=== PATIENT | female | born 2000 | race Two or more races ===

== ENCOUNTER 2023-11-17 16:15 | Emergency (ER) | payer MEDICAID, OTHER ==
[~2023-11-17] VITALS: Ht 157.5 cm; Wt 101.7 kg
[2023-11-17 18:51] VITALS: BP 128/86; PULSE 97; RESP 17; TEMP 97.9; O2SAT 98
[2023-11-17] MEDS ORDERED: AMOX500C2 PO (19:11)
== END 2023-11-17 19:16 | disposition home or self-care (01) ==
LOC: ER 16:15
DX: J02.0 Streptococcal pharyngitis (principal); R05.9 Cough, unspecified; R42 Dizziness and giddiness

== ENCOUNTER 2024-12-14 10:38 | Emergency (ER) | payer OTHER, MEDICAID ==
[~2024-12-14] VITALS: Ht 157.5 cm; Wt 99.1 kg
[~2024-12-14 10:38] MED LIST: AMOX500C2 PO
[2024-12-14 11:29] VITALS: BP 133/89; PULSE 88; RESP 16; TEMP 98.3; O2SAT 99
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
[2024-12-14] MEDS: ACETAMINOPHEN 325 MG TAB PO ONE (11:53)
--- NOTE | 2024-12-14 12:26 | DVH ---
EXAM: CT HEAD WITHOUT CONTRAST HISTORY: HEAD INJURY COMPARISON: None TECHNIQUE: Axial images of the head were obtained and reformatted in coronal and sagittal planes. All CT scans at this medical facility are performed using dose modulation techniques as appropriate t o a performed exam including the following: Automated exposure control was utilized; adjustment of th e MA and/or KV according to patient size; and use of iterative reconstruction technique. CT Dose: CTDI volume is 53 mGy. Dose-length product is 971 mGy*cm FINDINGS: There is no evidence of acute intracranial hemorrhage, mass, mass effect midline shift. There is no h ydrocephalus or extra-axial fluid collection. Cervantes-white matter differentiation is maintained. The visualized paranasal sinuses and mastoid air cells are clear. The calvarium is intact. IMPRESSION: 1. No acute intracranial process. HS:Y
[2024-12-14] MEDS ORDERED: IBUP-1456 PO (12:42)
== END 2024-12-14 12:52 | disposition home or self-care (01) ==
LOC: ER 10:38
DX: S00.83XA Contusion of other part of head, initial encounter (principal); W22.8XXA Striking against or struck by other objects, initial encounter; Y93.89 Activity, other specified; Y92.89 Other specified places as the place of occurrence of the external cause; Y99.8 Other external cause status
CPT/HCPCS: 70450

== ENCOUNTER 2025-07-31 09:58 | Emergency (ER) | payer MEDICAID ==
[~2025-07-31] VITALS: Ht 157.5 cm; Wt 96.3 kg
[~2025-07-31 09:58] MED LIST changes: +IBUP-1456 PO
[2025-07-31] MEDS: ALBUTEROL SULF 2.5 MG/0.5ML(0.5%) NEB SOLN NEB ONE ×2 (10:38→10:45)
[2025-07-31] MEDS: IPRATROPIUM BROM 0.5 MG/2.5ML INH SOL NEB ONE ×2 (10:38→10:45)
--- NOTE | 2025-07-31 10:42 | ED.PDOC ---
SOB-HPI HPI Comments A 25 YEAR OLD FEMALE PRESENTS TO THE ED WITH COMPLAINT OF SOB. PATIENT REPORTS THAT SHE HAS BEEN EXPERIENCING SOB WITH ASSOCIATED COUGH FOR THE PAST 2 DAYS. PATIENT RELAYS THAT SHE HAS HISTORY OF ASTHMA, BUT HER INHALER HAS NOT PROVIDED RELIEF. PATIENT DENIES FEVER, CHILLS, CHEST PAIN, ABDOMINAL PAIN, NAUSEA, VOMITING, HEADACHE, OR OTHER COMPLAINTS. NO OTHER SYMPTOMS OR MODIFYING FACTORS AT THIS TIME. PATIENT IS ALERT, ORIENTED X 4, AND HAS STEADY GAIT. Chief Complaint: Asthma Time Seen by MD: 10:40 Reviewed notes: Nurses Notes, Medications, Allergies Information Source: Patient Mode of Arrival: Ambulatory Severity: Moderate Timing: Days Duration: Since onset Context: At Rest PE Risk Factors: None History of: Asthma Prehospital treatment: None Modifying Factors: Nothing Associated Signs and Symptoms: Cough If cough with SOB: Non-Productive Past Medical History PAST MEDICAL HISTORY: Asthma, Cancer (LEUKEMIA) Surgical History: Denies all surgeries FOOD CONSULTANT History: No Pertinent FOOD CONSULTANT History Family History Family History: Reviewed,noncontributory to illness Social History Smoker: Non-Smoker Alcohol: Denies ETOH Use Drugs: Denies Drug Use Lives In: Home Constitutional: denies: chills, diaphoresis, fatigue, fever, malaise, sweats, weakness, others EENTM: denies: blurred vision, double vision, ear bleeding, ear discharge, ear drainage, ear pain, ear ringing, eye pain, eye redness, hearing loss, mouth pain, mouth swelling, nasal discharge, nose bleeding, nose congestion, nose pain, photophobia, tearing, throat pain, throat swelling, voice changes, others Respiratory: reports: cough, shortness of breath; denies: hemoptysis, orthopnea, SOB at rest, SOB with excertion, stridor, wheezing, others Cardiovascular: denies: chest pain, dizzy spells, diaphoresis, Dyspnea on exertion, edema, irregular heart beat, left arm pain, lightheadedness, palpitations, PND, syncope, others Gastrointestinal: denies: abdomen distended, abdominal pain, blood streaked bowels, constipated, diarrhea, dysphagia, difficulty swallowing, hematemesis, melena, nausea, poor appetite, poor fluid intake, rectal bleeding, rectal pain, vomiting, others Genitourinary: denies: abnormal vagina bleeding, burning, dyspareunia, dysuria, flank pain, frequency, hematuria, incontinence, pain, , vagina discharge, urgency, others Neurological: denies: dizziness, fainting, headache, left sided numbness, left sided weakness, numbness, paresthesia, pre-existing deficit, right sided numbness, right sided weakness, seizure, speech problems, tingling, tremors, weakness, others Musculoskeletal: denies: back pain, gout, joint pain, joint swelling, muscle pain, muscle stiffness, neck pain, others Integumetry: denies: bruises, change in color, change in hair/nails, dryness, laceration, lesions, lumps, rash, wounds, others Allergic/Immunocompromised: denies: Difficulty Healing, Frequent Infections, Hives, Itching, others Hematologic/Lymphatic: denies: anemia, blood clots, easy bleeding, easy bruising, swollen glands, others Endocrine: denies: excessive hunger, excessive sweating, excessive thirst, excessive urination, flushing, intolerance to cold, intolerance to heat, unexplained weight gain, unexplained weight loss, others Psychiatric: denies: anxiety, bipolar disorder, depression, hopeless, panic disorder, schizophrenia, sleepless, suicidal, others All Other Systems: Reviewed and Negative Physical Exam General Appearance: No Apparent Distress, Obese HEENT: Normal ENT Inspection, Pharynx Normal, TMs Normal Neck: Full Range of Motion, Non-Tender, Normal, Normal Inspection Respiratory: Chest Non-Tender, Decreased Breath Sounds, Expiration, No Accessory Muscle Use, No Respiratory Distress, Wheezing Cardiovascular: No Edema, No JVD, No Murmur, No Gallop, Normal Peripheral Pulses, Regular Rate/Rhythm Breast Exam: Deferred Gastrointestinal: No Organomegaly, Non Tender, No Pulsatile Mass, Normal Bowel Sounds, Soft Genitalia: Deferred Pelvic: Deferred Rectal: Deferred Extremities: No calf tenderness, Normal capillary refill, Normal inspection, Normal range of motion, Non-tender, No pedal edema Musculoskeletal : Apperance: Normal Neurologic: Alert, grocery store manager II-XII nml as Tested, No Motor Deficits, Normal Affect, Normal Mood, No Sensory Deficits Cerebellar Function: Normal Reflexes: Normal Skin: Dry, Normal Color, Warm Peripheral Pulses: 2+ carotid (R), 2+ carotid (L) Lymphatic: No Adenopathy Was a procedure done? Was a procedure done?: No Differential Dx Differential Diagnosis: Asthma, Bronchitis, Sinusitis, Allergic Rhinitis, Pharyngitis, URI X-Ray, Labs, Meds, VS Vital Signs Date Time Temp Pulse Resp B/P (MAP) Pulse Ox O2 Delivery O2 Flow Rate FiO2 07/31/25 10:45 18 100 Room Air* 0 21 07/31/25 10:38 20 100 Room Air* 0 21 07/31/25 09:59 98.1 121 15 131/89 98 98.1 Current Medications Medications (Trade) Dose Ordered Sig/Macey Route Start Time Stop Time Status Last Admin Albuterol (Ventolin Medneb) 2.5 mg ONCE ONCE NEB 07/31/25 10:30 07/31/25 10:31 DC 07/31/25 10:38 Ipratropium Denhoff (Atrovent Medneb) 0.5 mg ONCE ONCE NEB 07/31/25 10:30 07/31/25 10:31 DC 07/31/25 10:38 Albuterol (Ventolin Medneb) 2.5 mg ONCE ONCE NEB 07/31/25 10:45 07/31/25 10:46 DC 07/31/25 10:45 Ipratropium Denhoff (Atrovent Medneb) 0.5 mg ONCE ONCE NEB 07/31/25 10:45 07/31/25 10:46 DC 07/31/25 10:45 X-Ray, Labs, Meds, VS Comment EXTERNAL MEDICAL RECORDS REVIEWED: [NONE] INDEPENDENT HISTORIANS: [NONE] SOCIAL DETERMINANTS OF HEALTH: [NONE] LABS ORDERED: NONE REVIEWED AND INTERPRETED RESULTS: NONE IMAGING ORDERED: NONE TREATMENTS ORDERED: DUO-NEB BREATHING TREATMENTX 2 AND SOLU-MEDROL 125MG IM PROCEDURES PERFORMED: NONE CRITICAL CARE TIME: NONE I HAVE DISCUSSED THE PATIENT WITH THE ATTENDING PHYSICIAN, DR. MUHAMMAD, HE AGREES WITH THE PATIENT'S PLAN OF CARE AND DISPOSITION. BASED ON HISTORY OF PRESENT ILLNESS, AND PHYSICAL EXAM, PATIENT WILL BE DISCHARGED HOME. DISCUSSED PLAN FOR DISCHARGE HOME WITH RX [ALBUTEROL AND PREDNISONE]. MEDICATION WARNINGS GIVEN. SHARED DECISION MAKING: DISCUSSED WITH PATIENT THAT THEIR WORKUP WAS NORMAL. PATIENT INSTRUCTED TO FOLLOW UP WITH PRIMARY CARE PROVIDER IN 1-2 DAYS FOR RE- EVALUATION OF SYMPTOMS. PATIENT VERBALIZES UNDERSTANDING TO RETURN TO ED FOR NEW OR WORSENING SYMPTOMS OR IF FOLLOW UP WITH PCP CANNOT BE OBTAINED. PATIENT FEELS COMFORTABLE GOING HOME AT THIS TIME. ALL QUESTIONS ADDRESSED AT TIME OF DISCHARGE. Time of 1ST Reevaluation: 11:11 Reevaluation 1ST: Improved Patient Education/Counseling: Diagnosis, Treatment, Need For Follow Up Family Education/Counseling: Diagnosis, Treatment, Need For Follow Up Medical Screening: No EMC Exist At This Time SEPSIS Sepsis Screen Date sepsis recognized/suspect: Jul 31, 2025 Time Sepsis recognized/suspect: 1001 Recent Procedure: No On Antibiotic Therapy: No Respiratory Rate >20: No Heart Rate >90: No Temp<36 C (96.8 F) or >38.3 C: No SBP <90 or MAP <65 mmHG: No New Acute Mental Status Change: No Is the patient on CPAP, BIPAP,: No Vital Signs Date Time Temp Pulse Resp B/P (MAP) Pulse Ox O2 Delivery O2 Flow Rate FiO2 07/31/25 10:45 18 100 Room Air* 0 21 07/31/25 10:38 20 100 Room Air* 0 21 07/31/25 09:59 98.1 121 15 131/89 98 98.1 Medications Medications Dose Ordered Sig/Macey Route Start Time Stop Time Status Last Admin Dose Admin Albuterol 2.5 mg ONCE ONCE NEB 07/31/25 10:30 07/31/25 10:31 DC 07/31/25 10:38 Albuterol 2.5 mg ONCE ONCE NEB 07/31/25 10:45 07/31/25 10:46 DC 07/31/25 10:45 Ipratropium Denhoff 0.5 mg ONCE ONCE NEB 07/31/25 10:30 07/31/25 10:31 DC 07/31/25 10:38 Ipratropium Denhoff 0.5 mg ONCE ONCE NEB 07/31/25 10:45 07/31/25 10:46 DC 07/31/25 10:45 Departure 1 Departure Time of Disposition: 11:20 Impression: Primary Impression: Asthma exacerbation Qualified Codes: J45.21 - Mild intermittent asthma with (acute) exacerbation Disposition: HOME / SELF CARE / HOMELESS Condition: Stable Additional Instructions: FOLLOW-UP WITH PCP IN 1 TO 2 DAYS. TAKE MEDICATIONS PRESCRIBED. RETURN TO ED FOR ANY NEW OR WORSENING SYMPTOMS. e-Prescriptions Pantoprazole Sodium Sesquihydr (Protonix) 40 Mg Tab 60 MG PO DAILY, #18 TAB Prov: SWETHA LINK 07/31/25 Albuterol Sulfate (Albuterol Sulfate Hfa) 108 Mcg/Act Aer 108 MCG IN TID, #120 AER Prov: SWETHA LINK 07/31/25 Discharged With: Self Critical Care Note Critical Care Time?: No Stability Stability form required: No Heart Score Heart Score: Heart Score Response (Comments) Value History N/A 0 EKG N/A 0 Age N/A 0 Risk Factors N/A 0 Troponin N/A 0 Total 0 I personally scribed for SWETHA LINK ([email or web address]) on 07/31/25 at 10:42. Electronically submitted by Demond Carrasquillo ([email or web address]). I personally scribed for SWETHA LINK ([email or web address]) on 07/31/25 at 10:59. Electronically submitted by Demond Carrasquillo ([email or web address]). SWETHA LINK Jul 31, 2025 10:42
[2025-07-31] MEDS ORDERED: ALBU108A5 IN (11:09)
[2025-07-31] MEDS ORDERED: PANT40TA2 PO (11:09)
[2025-07-31] MEDS: methylPREDNISolone SOD SUCC 125 MG/2 ML VL IM ONE (11:15)
[2025-07-31 11:25] VITALS: BP 124/77; PULSE 110; RESP 18; TEMP 98.4; O2SAT 97
[2025-07-31] MEDS ORDERED: PRED20TA2 PO (11:25)
== END 2025-07-31 11:27 | disposition home or self-care (01) ==
LOC: ER 09:58
DX: J45.901 Unspecified asthma with (acute) exacerbation (principal); Z79.899 Other long term (current) drug therapy
CPT/HCPCS: 94640; 96372; 99283; J2919

== ENCOUNTER 2025-09-10 20:45 | Emergency (ER) | payer MEDICAID ==
[~2025-09-10] VITALS: Ht 157.5 cm; Wt 96.7 kg
[~2025-09-10 20:45] MED LIST changes: +ALBU108A5 IN; +PRED20TA2 PO
[2025-09-10 20:48] VITALS: TEMP 98.2
[2025-09-10] MEDS: ALBUTEROL SULF 2.5 MG/0.5ML(0.5%) NEB SOLN NEB ONE (21:15)
[2025-09-10] MEDS: IPRATROPIUM BROM 0.5 MG/2.5ML INH SOL NEB ONE (21:15)
[2025-09-11 00:33] VITALS: BP 120/80; PULSE 96; RESP 20; O2SAT 97
[2025-09-11] MEDS ORDERED: PRED20TA2 PO (00:36)
[2025-09-11] MEDS ORDERED: ALBUAER3 IN (00:36)
--- NOTE | 2025-09-11 00:36 | ED.PDOC ---
SOB-HPI HPI Comments 25-year-old female presents to ER with complaints of asthma exacerbation x2 hours. Patient with past medical history significant for asthma reports that she has been experiencing mild dry cough, shortness of breath and wheezing x2 hours. Reports that she did take her prescribed albuterol inhaler with slight relief. Patient presents to ER ambulatory on arrival, with steady gait, in no distress with pulse ox 98% on RA. Denies fever, body aches, chills, chest pain, recent illness or any further symptoms/complaints Chief Complaint: Asthma Time Seen by MD: 20:59 Primary Care Provider: UNKNOWN Reviewed notes: Nurses Notes, Medications, Allergies Information Source: Patient Mode of Arrival: Ambulatory Past Medical History PAST MEDICAL HISTORY: Asthma, Cancer Surgical History: Denies all surgeries [facility] C[facility] DIRECTOR History: No Pertinent COMM[facility] DIRECTOR History Family History Family History: Unknown Social History Smoker: Non-Smoker Alcohol: Denies ETOH Use Drugs: Denies Drug Use Lives In: Home Constitutional: denies: chills, diaphoresis, fatigue, fever, malaise, sweats, weakness, others EENTM: denies: blurred vision, double vision, ear bleeding, ear discharge, ear drainage, ear pain, ear ringing, eye pain, eye redness, hearing loss, mouth pain, mouth swelling, nasal discharge, nose bleeding, nose congestion, nose pain, photophobia, tearing, throat pain, throat swelling, voice changes, others Respiratory: reports: others (As stated in HPI) Cardiovascular: denies: chest pain, dizzy spells, diaphoresis, Dyspnea on exertion, edema, irregular heart beat, left arm pain, lightheadedness, palpitations, PND, syncope, others Gastrointestinal: denies: abdomen distended, abdominal pain, blood streaked bowels, constipated, diarrhea, dysphagia, difficulty swallowing, hematemesis, melena, nausea, poor appetite, poor fluid intake, rectal bleeding, rectal pain, vomiting, others Genitourinary: denies: abnormal vagina bleeding, burning, dyspareunia, dysuria, flank pain, frequency, hematuria, incontinence, pain, , vagina discharge, urgency, others Neurological: denies: dizziness, fainting, headache, left sided numbness, left sided weakness, numbness, paresthesia, pre-existing deficit, right sided numbness, right sided weakness, seizure, speech problems, tingling, tremors, weakness, others Musculoskeletal: denies: back pain, gout, joint pain, joint swelling, muscle pain, muscle stiffness, neck pain, others Integumetry: denies: bruises, change in color, change in hair/nails, dryness, laceration, lesions, lumps, rash, wounds, others Allergic/Immunocompromised: denies: Difficulty Healing, Frequent Infections, Hives, Itching, others Hematologic/Lymphatic: denies: anemia, blood clots, easy bleeding, easy bruising, swollen glands, others Endocrine: denies: excessive hunger, excessive sweating, excessive thirst, excessive urination, flushing, intolerance to cold, intolerance to heat, unexplained weight gain, unexplained weight loss, others Psychiatric: denies: anxiety, bipolar disorder, depression, hopeless, panic disorder, schizophrenia, sleepless, suicidal, others Physical Exam General Appearance: No Apparent Distress, Obese HEENT: Normal ENT Inspection, PERRL/EOMI, Pharynx Normal, TMs Normal Neck: Full Range of Motion, Non-Tender, Normal Respiratory: Chest Non-Tender, Lungs Clear, No Accessory Muscle Use, No Respiratory Distress, Wheezing (Slightly noted to bilateral upper lung duffy) Cardiovascular: No Murmur, No Gallop, Tachycardia Breast Exam: Deferred Gastrointestinal: NOT DONE Genitalia: Deferred Pelvic: Deferred Rectal: Deferred Extremities: Normal capillary refill, Normal range of motion Neurologic: Alert, No Motor Deficits, Normal Affect, Normal Mood, No Sensory Deficits Cerebellar Function: Normal Reflexes: Normal Skin: Dry, Normal Color, Warm Peripheral Pulses: 3+ Radial (R), 3+ Radial (L), 3+ Brachial (R), 3+ Brachial (L) Lymphatic: No Adenopathy Was a procedure done? Was a procedure done?: No Sedation Sedation?: No Differential Dx Differential Diagnosis: Pneumonia, Pulmonary Embolism, Respiratory Distress, URI X-Ray, Labs, Meds, VS Vital Signs Date Time Temp Pulse Resp B/P (MAP) Pulse Ox O2 Delivery O2 Flow Rate FiO2 09/11/25 00:33 96 20 120/80 (93) 97 09/11/25 00:32 Room Air* 0 21 09/10/25 21:15 20 98 Room Air* 0 21 09/10/25 20:48 98.2 120 18 129/88 98 98.2 Current Medications Medications (Trade) Dose Ordered Sig/Macey Route Start Time Stop Time Status Last Admin Albuterol (Ventolin Medneb) 5 mg ONCE ONCE NEB 09/10/25 21:00 09/10/25 21:01 DC 09/10/25 21:15 Ipratropium Hoven (Atrovent Medneb) 0.5 mg ONCE ONCE NEB 09/10/25 21:00 09/10/25 21:01 DC 09/10/25 21:15 Duo nebulizer treatment ordered Solu-Medrol 125 mg IM ordered Patient had improvement in symptoms, vitals stable, denied any shortness of breath and in no distress prior to discharge Advised to drink plenty of fluids Advised to follow up with PCP in 1-2 days Patient verbalized understanding and agreeable with current plan of care Advised to return to ER immediately if symptoms worsen Time of 1ST Reevaluation: 00:04 Reevaluation 1ST: N/A Patient Education/Counseling: Diagnosis, Treatment, Prognosis, Need For Follow Up Family Education/Counseling: No Family Present SEPSIS Sepsis Screen Date sepsis recognized/suspect: Sep 10, 2025 Time Sepsis recognized/suspect: 2047 Recent Procedure: No On Antibiotic Therapy: No Respiratory Rate >20: No Heart Rate >90: Yes Temp<36 C (96.8 F) or >38.3 C: No SBP <90 or MAP <65 mmHG: No New Acute Mental Status Change: No Is the patient on CPAP, BIPAP,: No Physician Orders Methylprednisolone Sod Succ (Solu Medrol (09/11/25 00:45) Vital Signs Date Time Temp Pulse Resp B/P (MAP) Pulse Ox O2 Delivery O2 Flow Rate FiO2 09/11/25 00:33 96 20 120/80 (93) 97 09/11/25 00:32 Room Air* 0 21 09/10/25 21:15 20 98 Room Air* 0 21 09/10/25 20:48 98.2 120 18 129/88 98 98.2 Medications Medications Dose Ordered Sig/Macey Route Start Time Stop Time Status Last Admin Dose Admin Albuterol 5 mg ONCE ONCE NEB 09/10/25 21:00 09/10/25 21:01 DC 09/10/25 21:15 Ipratropium Hoven 0.5 mg ONCE ONCE NEB 09/10/25 21:00 09/10/25 21:01 DC 09/10/25 21:15 Departure 1 Departure Time of Disposition: 00:35 Impression: Primary Impression: Acute asthma exacerbation Qualified Codes: J45.21 - Mild intermittent asthma with (acute) exacerbation Disposition: 01 HOME / SELF CARE / HOMELESS Condition: Stable e-Prescriptions Albuterol Sulfate (VENTOLIN MDI) 90 Mcg Ih 2 PUFF IN Q4HPRN, #1 INH 0 Refills Prov: SASHA SANTIAGO 09/11/25 Prednisone (Prednisone) 20 Mg Tab 20 MG PO BID for 5 Days, #10 TAB 0 Refills Prov: SASHA SANTIAGO 09/11/25 Discharged With: Self Critical Care Note Critical Care Time?: No Stability Stability form required: No Heart Score Heart Score: Heart Score Response (Comments) Value History N/A 0 EKG N/A 0 Age N/A 0 Risk Factors N/A 0 Troponin N/A 0 Total 0 SASHA SANTIAGO Sep 11, 2025 00:36
[2025-09-11] MEDS: methylPREDNISolone SOD SUCC 125 MG/2 ML VL IM ONE (00:45)
== END 2025-09-11 00:46 | disposition home or self-care (01) ==
LOC: ER 20:45
DX: J45.901 Unspecified asthma with (acute) exacerbation (principal); Z79.899 Other long term (current) drug therapy
CPT/HCPCS: 94640; 96372; 99283; J2919